=== PATIENT | male | born 1970 | race Caucasian/White ===

== ENCOUNTER → 2017-08-28 | Outpatient (CLI) | payer OTHER ==
--- NOTE | 2017-08-28 13:23 | DIAGNOSTIC IMAGING REPORT ---
ORBITS FOR MRI HISTORY: Pre-MRI pre-MRI screening. COMPARISON: None. FINDINGS: There are no radiopaque foreign bodies identified within the orbits. IMPRESSION: No radiopaque foreign bodies identified within the orbits. The above report was generated using voice recognition software. It may contain grammatical, syntax or spelling errors. Electronically signed by: Cipriano Velazquez M.D. 08/28/2017 1:22 PM Dictated Date/Time: 08/28/2017 1:21 PM
--- NOTE | 2017-08-28 13:51 | DIAGNOSTIC IMAGING REPORT ---
LUMBAR SPINE W/O CONTRAST CLINICAL HISTORY: 47 years-old Male presenting with LOW BACK PAIN. TECHNIQUE: Multisequence, multiplanar MR imaging of the lumbar spine was performed without the use of intravenous contrast. IV contrast: None. COMPARISON: None. FINDINGS: Localizer images: Unremarkable. Normal lumbar lordosis. No scoliosis. Primarily fatty endplate changes evident at L5-S1 with minimal subjacent edema (Modic type I and II). Remaining vertebral bodies demonstrate normal height, alignment, and bone marrow signal intensity. Intervertebral disc desiccation without significant height loss at L4-5. Desiccation with height loss and disc bulge and trace disc fluid evident at L5-S1. No significant neural foraminal or spinal canal narrowing at any of the levels including L5-S1. Only mild facet arthropathy evident at L5-S1. Spinal cord ends in good position above the level of L1 and cauda equina normal in morphology. Paraspinal musculature normal without evidence of muscle edema. Remaining visualized soft soft tissues within normal limits. IMPRESSION: 1. Focal degenerative changes at L5-S1. The presence of minimal intervertebral disc fluid and minimal bony edema at L5-S1 remain most consistent with a degenerative etiology. This is felt unlikely to represent discitis osteomyelitis. Correlate for infectious symptoms. 2. No significant neural foraminal or spinal canal narrowing. Electronically signed by: Colton Mccracken M.D. 08/28/2017 1:49 PM Dictated Date/Time: 08/28/2017 1:45 PM
== END | disposition home or self-care (01) ==
LOC: C.RAD 12:53
PROVIDERS: ATTEND Family Medicine
DX: M54.5 Low back pain (principal); Z18.10 Retained metal fragments, unspecified; M47.896 Other spondylosis, lumbar region